=== PATIENT | female | born 1970 | race Two or more races ===

== ENCOUNTER 2024-10-13 21:27 | Inpatient (IN) | payer OTHER, MEDICAID ==
[~2024-10-13] VITALS: Ht 165.1 cm; Wt 75.0 kg
[2024-10-13] MEDS: ASPirin 81 mg TAB PO ONE (22:18)
[2024-10-13 22:21] LABS: Basophils # (auto) 0.1 10 ^3/uL (0-0.2); Basophils % (auto) 0.8 % (0.0-2.0); Eosinophils # (auto) 0.2 10 ^3/uL (0-0.8); Eosinophils % (auto) 1.7 % (0.0-7.0); Hematocrit 35.4 % (36.0-46.0); Hemoglobin 11.8 g/dL (12.2-16.2); Lymphocytes # (auto) 5.7 10 ^3/uL (0.4-5.4); Lymphocytes % (auto) 46.1 % (10.0-50.0); Mean Corpuscular Hemoglobin 31.6 pg (28.0-32.0); Mean Corpuscular Hgb Conc. 33.2 g/dL (32.0-36.0); Mean Corpuscular Volume 95.1 fL (80.0-100.0); Monocytes # (auto) 0.8 10 ^3/uL (0-1.3); Monocytes % (auto) 6.2 % (0.0-12.0); Neutrophils # (auto) 5.6 10 ^3/uL (1.6-8.6); Neutrophils % (auto) 45.2 % (37.0-80.0); Nucleated Red Blood Cells % 0.1 %; Platelet Count (auto) 312 10^3/uL (140-450); Red Blood Cells 3.72 10^6/uL (4.0-5.20); Red Cell Distribution Width 13.7 % (11.8-14.3); White Blood Cell 12.4 10^3/uL (4.4-10.8)
--- NOTE | 2024-10-13 22:23 | DVH ---
CHEST RADIOGRAPH Indication: cp Technique: Single frontal view of the chest was obtained COMPARISON: None FINDINGS: Lines and Tubes: None Lungs: Clear Pleura: No effusion. No pneumothorax. Cardiomediastinal contours: Unremarkable Bones: Unremarkable IMPRESSION: 1. No acute disease.
[2024-10-13 22:55] LABS: Alanine Aminotransferase 29 U/L (7-40); Anion Gap 9 (5-15); Aspartate Aminotransferase 37 U/L (13-40); BUN/Creatinine Ratio 14.1 (10.0-20.0); Blood Alcohol 26.5 mg/dL (<10); Blood Urea Nitrogen 14 mg/dL (9-23); Calcium 9.3 mg/dL (8.7-10.4); Carbon Dioxide 23 mmol/L (20-31); Sodium 140 mmol/L (136-145); Total Protein 6.1 g/dL (5.7-8.2)
[2024-10-13 22:58] LABS: Alkaline Phosphatase 131 U/L (46-116); Bilirubin, Total 0.2 mg/dL (0.2-1.0); Chloride 108 mmol/L (98-107); Glucose 169 mg/dL (74-106); Potassium 3.1 mmol/L (3.5-5.1)
[2024-10-13 23:14] LABS: Albumin 3.8 g/dL (3.2-4.8)
[2024-10-14] VITALS (16 sets, daily range): BP systolic 96–130; BP diastolic 51–72; PULSE 70–89; RESP 12–20; TEMP 97.6–99.4; O2SAT 96–100
--- NOTE | 2024-10-14 00:29 | ED.PDOC ---
HPI Comments 54-year-old female who presents to the emergency department with chest pain. Patient appears to be altered, she is a poor historian. EMS reports possible alcohol use. EMS states that patient's called 911 after patient started complaining of chest pain and dizziness. The patient states she has hip pain. She reports a history of heart attack however she takes no cardiac meds per EMS. Patient reports that she did drink alcohol tonight, She states "i don't know " w hen asked how much. Chief Complaint: Chest Pain Time Seen by MD: 21:36 Allergies: Coded Allergies: NO KNOWN ALLERGIES (Unverified , 10/13/24) Mode of Arrival: Ambulatory Review of Systems: Unable to obtain due to AMS. Patient answers "I don't know" to most questions. Vital Signs Vital Signs Date Time Temp Pulse Resp B/P (MAP) Pulse Ox O2 Delivery O2 Flow Rate FiO2 10/14/24 00:36 77 10/13/24 21:27 98.0 16 112/60 (77) 100 Physical Exam General: Patient is sleeping, arouses to verbal Skin: Skin in warm, dry and intact. Appropriate color for ethnicity. HEENT: The head is normocephalic and atraumatic. Conjunctivae are clear without exudates or hemorrhage. Sclera is non-icteric. EOM are intact. No signs of nystagmus. Eyelids are normal in appearance without swelling or lesions. Oral mucosa is pink and moist Neck: The neck is supple with normal range of motion. No JVD. Cardiac: Heart rate and rhythm are normal. No murmurs, gallops, or rubs are auscultated. Respiratory: No signs of respiratory distress. Lung sounds are clear in all lobes bilaterally without rales, ronchi, or wheezes. Abdominal: Abdomen is soft, non-tender without distention. Bowel sounds are present and normoactive in all four quadrants. Extremities: Upper and lower extremities are atraumatic in appearance without deformity or edema. Neurological: The patient is awake, alert and oriented to person, place, and time with normal speech. Speech is clear. There is no facial asymmetry. Psychiatric: Appropriate mood and affect. Good judgement and insight. No visual or auditory hallucinations. CP Differential Dx Differential Diagnosis: Other X-Ray, Labs, Meds, VS Vital Signs Date Time Temp Pulse Resp B/P (MAP) Pulse Ox O2 Delivery O2 Flow Rate FiO2 10/14/24 00:36 77 10/13/24 22:40 87 10/13/24 21:40 99 10/13/24 21:27 98.0 100 16 112/60 (77) 100 Lab Test 10/13/24 23:00 10/13/24 22:11 Range/Units Troponin I High Sensitivity < 3 L < 3 L </=34 ng/L White Blood Count 12.4 H 4.4-10.8 10^3/uL Red Blood Count 3.72 L 4.0-5.20 10^6/uL Hemoglobin 11.8 L 12.2-16.2 g/dL Hematocrit 35.4 L 36.0-46.0 % Mean Corpuscular Volume 95.1 80.0-100.0 fL Mean Corpuscular Hemoglobin 31.6 28.0-32.0 pg Mean Corpuscular Hemoglobin Concent 33.2 32.0-36.0 g/dL Red Cell Distribution Width 13.7 11.8-14.3 % Platelet Count 312 140-450 10^3/uL Mean Platelet Volume 7.5 6.9-10.8 fL Neutrophils (%) (Auto) 45.2 37.0-80.0 % Lymphocytes (%) (Auto) 46.1 10.0-50.0 % Monocytes (%) (Auto) 6.2 0.0-12.0 % Eosinophils (%) (Auto) 1.7 0.0-7.0 % Basophils (%) (Auto) 0.8 0.0-2.0 % Neutrophils # (Auto) 5.6 1.6-8.6 10 ^3/uL Lymphocytes # (Auto) 5.7 H 0.4-5.4 10 ^3/uL Monocytes # (Auto) 0.8 0-1.3 10 ^3/uL Eosinophils # (Auto) 0.2 0-0.8 10 ^3/uL Basophils # (Auto) 0.1 0-0.2 10 ^3/uL Nucleated Red Blood Cells 0.1 % Sodium Level 140 136-145 mmol/L Potassium Level 3.1 L 3.5-5.1 mmol/L Chloride Level 108 H 98-107 mmol/L Carbon Dioxide Level 23 20-31 mmol/L Anion Gap 9 5-15 Blood Urea Nitrogen 14 9-23 mg/dL Creatinine 0.99 0.550-1.02 mg/dL Glomerular Filtration Rate Calc 68 >90 mL/min BUN/Creatinine Ratio 14.1 10.0-20.0 Serum Glucose 169 H 74-106 mg/dL Calcium Level 9.3 8.7-10.4 mg/dL Total Bilirubin 0.2 0.2-1.0 mg/dL Aspartate Amino Transferase (AST) 37 13-40 U/L Alanine Aminotransferase (ALT) 29 7-40 U/L Alkaline Phosphatase 131 H 46-116 U/L B-Type Natriuretic Peptide 102.08 0-100 pg/mL Total Protein 6.1 5.7-8.2 g/dL Albumin 3.8 3.2-4.8 g/dL Plasma/Serum Blood Alcohol 26.5 H <10 mg/dL Current Medications Medications (Trade) Dose Ordered Sig/Radha Route Start Time Stop Time Status Last Admin Aspirin 324 mg ONCE ONCE PO 10/13/24 22:00 10/13/24 22:01 DC 10/13/24 22:18 Time of 1ST Reevaluation: 00:28 Reevaluation 1ST: Unchanged Time of 2ND Reevaluation: 01:12 Reevaluation 2ND: Unchanged (Patient is stating she is confused, does not know where she is, does not remember how she got to the emergency department. Patient's boyfriend at bedside STEMI patient is not back to baseline.) Reevaluation 3RD: Unchanged (Patient is still confused, stating she doesn't know where she is. Doesn't remember coming to the hospital.) Patient Education/Counseling: Other (Need for admission) Family Education/Counseling: Other (Need for admission) Departure Time of Disposition: 00:28 Disposition: 09 ADMITTED INPATIENT Condition: Stable Comments 54 year old female with chest pain and AMS. Patient is still confused after significant time in ED. no focal neuro deficit. Blood alcohol level only 25. Patient admitted for further treatment, evaluation and monitoring. STUART LABOY MD Oct 14, 2024 00:29
--- NOTE | 2024-10-14 00:47 | DVH ---
Procedure: CT CHEST WITHOUT CONTRAST Reason for study/Clinical History: cp, abnormal cxr Comparison Study: None available at time of dictation. Exam Date: 10/14/2024 12:21 AM TECHNIQUE: Multidetector CT of the chest was performed from the lung apices to the upper abdomen with out the use of intravenous contract. Axial, coronal and sagittal multiplanar reformats were performed . Radiation Dose Information: CT Dose: CTDI volume is 9.0 mGy. Dose-length product is 335 mGy*cm The dose indicators for CT are the volume Computed Tomography (CT) Dose Index (CTDIvol) and the Dose Length Product (DLP), and are measured in units of mGy and mGy-cm, respectively. These indicators are not patient dose, but values generated from the CT scanner acquisition factors. The report includes radiation exposure data for exposures received during this examination. FINDINGS: Lower neck: Normal thyroid. Lungs: Bibasilar atelectasis/scarring. No focal consolidation, pleural effusion or pneumothorax. Heart/Vascular Structures: Normal heart size. No pericardial effusion. Lymph Nodes: No adenopathy Pleura: No pleural effusion or significant pneumothorax. Musculoskeletal: No acute osseous abnormality. Soft tissues: Normal. Upper abdomen: Limited portions of the upper abdomen are unremarkable. IMPRESSION: 1. No acute intrathoracic abnormality. Radiation optimization: All CT scans at this facility use at least one of these dose optimization brisa hniques: automated exposure control mA and/or kV adjustment per patient size (includes targeted exam s where dose is matched to clinical indication) or iterative reconstruction.
--- NOTE | 2024-10-14 01:57 | DVH ---
CLINICAL HISTORY: ams TECHNIQUE: Helical imaging carried out from skull base to vertex without intravenous contrast. This e xam was performed according to our departmental dose optimization program. Up-to-date CT equipment an d radiation dose reduction techniques are utilized as appropriate. CTDIVol: 57.57 mGy DLP: 1134 mGy-cm WID: COMPARISON: CT CHEST WITHOUT CONTRAST on DOS: 10/14/24 FINDINGS: The ventricles and subarachnoid spaces are normal in size and configuration. There is no midline elmo ft or mass effect. The quiros white matter interfaces are maintained. The basal cisterns are patent. Th ere is no evidence of acute intracranial hemorrhage or extra-axial fluid collection. The mastoid air cells and visualized paranasal sinuses are well-aerated. Dystrophic calcification anterior to the eleuterio ateral maxilla. IMPRESSION: No acute intracranial abnormality.
[2024-10-14] MEDS: POTASSIUM EFFERVESENT TAB 25 MEQ PO ONE (03:00)
[2024-10-14] MEDS: SODIUM CHLORIDE 0.9% 1,000 ML IV ONE (03:40)
[2024-10-14] MEDS ORDERED: ONDANSETRON HCL 4 MG/2 ML VIAL IV PRN (04:00)
[2024-10-14] MEDS ORDERED: NITROGLYCERIN 0.4 MG SL TAB SL PRN (04:00)
[2024-10-14] MEDS ORDERED: MORPHINE SULFATE INJ 2 MG/ml SYRG IV PRN (04:00)
[2024-10-14] MEDS ORDERED: ACETAMINOPHEN 325 MG TAB PO PRN (04:00)
--- NOTE | 2024-10-14 04:11 | DVHHPRES ---
History of Present Illness Resident Creating Document: LEWIS ANGULO RESDIENT History of Present Illness This is a 54-year-old female with past medical history of CABG, lipidemia came to the hospital because of chest pain. Per patient, the patient drank alcohol and later on the patient developed chest pain, which was localized at central chest, with no radiation, and pressure-like in nature. She also complained of palpitation, nausea, confusion and dizziness. Patient is confused and could not provide proper history. During my assessment, the patient denied fever, shortness of breath, cough, headache, visual deficits, any motor or sensory deficits. PMHx: Coronary artery disease, hyperlipidemia PSHx: CABG, hysterectomy, gallbladder removal and gastric sleeve Family history: Noncontributory Social history: Patient lives with son at home, current smoker, drank alcohol, denies any other drug use Home medication: Plavix, atorvastatin, gabapentin, Percocet, Allergic history: No known allergies Review of Systems Review of Systems General: patient denies fever, fatigue, weaknes, sweating, any recent changes in appetite and weight HEENT: No headaches, visiual changes, hearing loss, tinnitus, nasal congestion and discharge, and sore throat. Cardiovascular: Reports chest pain, and palpitation Respiratory: No cough, and wheezing. Gastrointestinal: Reports nausea Genitourinary: No dysuria, hematuria, discharge, frequency, urgency, nocturia, incontinence, and urinary retention. Endocrine: No heat or cold intolerance, polydipsia, polyuria, and polyphagia. Neurological: Reports dizziness Psychiatric: Denies depression, anxiety,or insomnia. Musculoskeletal: Denies neck pain, stiffness and swelling, back pain, muscle weakness, joint pain, stiffness, swelling, or limited range of motion. Skin: No rashes, itching, skin lesion, changes in hair, nail, skin texture and breast. Hematologic/Lymphatic: Denies easy bruising, bleeding tendencies, or lymph node enlargement. Allergies: Coded Allergies: NO KNOWN ALLERGIES (Unverified , 10/13/24) Exam Vital Signs Vital Signs Date Time Temp Pulse Resp B/P (MAP) Pulse Ox O2 Delivery O2 Flow Rate FiO2 10/14/24 02:48 89 16 106/67 (80) 100 10/13/24 21:27 98.0 Exam General Appearance: Alert, Oriented X3, lethargic and did not cooperate properly during physical exam HEENT: Atraumatic, PERRLA, EOMI, Mucous membrane moist/pink Respiratory: Clear to auscultation, Normal air movement Cardiovascular: Regular rate, Normal S1, Normal S2, No murmurs, no chest wall tenderness Abdominal: Normal bowel sounds, Soft, No tenderness, No hepatospenomegaly, No masses Extremities: No clubbing, No cyanosis, No edema, Normal pulses, No tenderness/swelling Skin: No rashes, No breakdown, No significant lesion Neuro: Normal gait, Normal speech, Strength at 5/5 X4 ext, Normal tone, Sensation intact, Cranial nerves 3-12 NL, Reflexes 2+ Psych/Mental Status: Mental status NL, Mood NL Labs/Xrays Labs Test 10/13/24 23:00 10/13/24 22:11 Range/Units Troponin I High Sensitivity < 3 L </=34 ng/L White Blood Count 12.4 H 4.4-10.8 10^3/uL Red Blood Count 3.72 L 4.0-5.20 10^6/uL Hemoglobin 11.8 L 12.2-16.2 g/dL Hematocrit 35.4 L 36.0-46.0 % Mean Corpuscular Volume 95.1 80.0-100.0 fL Mean Corpuscular Hemoglobin 31.6 28.0-32.0 pg Mean Corpuscular Hemoglobin Concent 33.2 32.0-36.0 g/dL Red Cell Distribution Width 13.7 11.8-14.3 % Platelet Count 312 140-450 10^3/uL Mean Platelet Volume 7.5 6.9-10.8 fL Neutrophils (%) (Auto) 45.2 37.0-80.0 % Lymphocytes (%) (Auto) 46.1 10.0-50.0 % Monocytes (%) (Auto) 6.2 0.0-12.0 % Eosinophils (%) (Auto) 1.7 0.0-7.0 % Basophils (%) (Auto) 0.8 0.0-2.0 % Neutrophils # (Auto) 5.6 1.6-8.6 10 ^3/uL Lymphocytes # (Auto) 5.7 H 0.4-5.4 10 ^3/uL Monocytes # (Auto) 0.8 0-1.3 10 ^3/uL Eosinophils # (Auto) 0.2 0-0.8 10 ^3/uL Basophils # (Auto) 0.1 0-0.2 10 ^3/uL Nucleated Red Blood Cells 0.1 % Sodium Level 140 136-145 mmol/L Potassium Level 3.1 L 3.5-5.1 mmol/L Chloride Level 108 H 98-107 mmol/L Carbon Dioxide Level 23 20-31 mmol/L Anion Gap 9 5-15 Blood Urea Nitrogen 14 9-23 mg/dL Creatinine 0.99 0.550-1.02 mg/dL Glomerular Filtration Rate Calc 68 >90 mL/min BUN/Creatinine Ratio 14.1 10.0-20.0 Serum Glucose 169 H 74-106 mg/dL Calcium Level 9.3 8.7-10.4 mg/dL Total Bilirubin 0.2 0.2-1.0 mg/dL Aspartate Amino Transferase (AST) 37 13-40 U/L Alanine Aminotransferase (ALT) 29 7-40 U/L Alkaline Phosphatase 131 H 46-116 U/L B-Type Natriuretic Peptide 102.08 0-100 pg/mL Total Protein 6.1 5.7-8.2 g/dL Albumin 3.8 3.2-4.8 g/dL Plasma/Serum Blood Alcohol 26.5 H <10 mg/dL Assessment/Plan Assessment/Plan Acute toxic Encephalopathy likely due to alcohol intoxication serum alcohol level is raised at Head CT scan is normal Serum alcohol level is raised at 26.5 [facility] protocol Ativan p.r.n. Librium p.r.n. Thiamine Zofran p.r.n. Protonix Chest pain, to rule out ACS History of coronary artery disease, status post CABG Hyperlipidemia EKG shows normal sinus rhythm, with no acute ST or T-wave changes Serial trop I is within normal limits Continue Plavix Continue atorvastatin Current smoker Patient counseled for smoking cessation for more than 17 minutes Hypokalemia, repleted Hyperchloremia, monitoring Mild anemia, normocytic normochromic Monitoring DIET: Cardiac diet DVT PROPHYLAXIS: SCDs GI PROPHYLAXIS:: Protonix CODE STATUS: Goal of care discussed for more than 21 minutes, full code DISPOSITION: Telemetry Patient's status discussed with the patient. Case discussed with Dr. Gomes Plan discussed with: Patient, Other (RN) My Orders Orders - LEWIS ANGULO RESDIENT Procedure Category Date Status Time Admit ADMIT 10/14/24 Transmitted 03:50 Nitroglycerin PHA 10/14/24 In Process Sublingual (Ntrostat 04:00 Morphine Sulfate PHA 10/14/24 In Process Injection 04:00 Stat Ekg For Chest KAMLA 10/14/24 In Process Pain 03:50 Notify Of Changes KAMLA 10/14/24 In Process From Base 03:50 Overhead Worker For KAMLA 10/14/24 In Process 24 Hours 03:50 Emergency Dysrhythmia KAMLA 10/14/24 In Process Protocol 03:50 Rhythm Strips Once KAMLA 10/14/24 In Process Every Shift 03:50 Pantoprazole PHA 10/14/24 In Process (Protonix) 04:00 Pantoprazole PHA 10/14/24 In Process (Protonix) 10:00 Sodium Chloride 0.9% PHA 10/14/24 In Process 04:00 Hydrocodone-Acet PHA 10/14/24 In Process 5/325mg Tab ([place] 04:00 Ondansetron Hcl PHA 10/14/24 In Process (Zofran) 04:00 Ondansetron Hcl PHA 10/14/24 In Process (Zofran) 04:00 Clopidogrel Bisulfate PHA 10/14/24 In Process (Plavix) 04:00 Clopidogrel Bisulfate PHA 10/14/24 In Process (Plavix) 10:00 Atorvastatin (Lipitor) PHA 10/14/24 In Process 22:00 Atorvastatin (Lipitor) PHA 10/14/24 In Process 04:00 Thiamine Inj PHA 10/14/24 In Process 04:00 Thiamine Tab PHA 10/14/24 In Process 10:00 Acetaminophen Tablet PHA 10/14/24 In Process (Tylenol Tablet) 04:00 Sequential KAMLA 10/14/24 In Process Compression Device 03:54 Cardiac DIET 10/14/24 Transmitted Diet-2gna,Lofat,Lochol Breakfast Echo 2d Mode Cardiac US 10/14/24 Logged DOP 03:54 Lipid Panel LAB 10/14/24 Logged 03:54 Thyroid Stimulating LAB 10/14/24 Logged Hormone 03:54 Magnesium LAB 10/14/24 Logged 03:54 Urinalysis LAB 10/14/24 Logged 03:54 Drug Screen LAB 10/14/24 Logged 03:54 Folate (Folic Acid) LAB 10/14/24 Logged 03:54 Vitamin D, 25-Hydroxy LAB 10/14/24 Logged 03:54 Vitamin B12 LAB 10/14/24 Logged 03:54 Complete Blood Count LAB 10/14/24 Logged 04:00 Comprehensive LAB 10/14/24 Logged Metabolic Panel 04:00 Troponin-I Hs LAB 10/14/24 Logged 07:56 Date of Service: Oct 14, 2024 Billing Provider: EVER GOMES MD Common Visit Codes: [id number] INP/OBS CARE (HIGH) LEWIS ANGULO RESPATSY Oct 14, 2024 04:11 EVER GOMES MD Oct 14, 2024 08:59
[2024-10-14] MEDS: POTASSIUM EFFERVESENT TAB 25 MEQ GT ONE (04:20)
--- NOTE | 2024-10-14 06:58 | ECG ---
[facility] Test Date: 2024-10-13 Test Time: 21:40:04 Pat Name: PIPER ARCHER Department: ed Room: 0240T Gender: F Well Tester: jose : 1970 Requested By: STUART LABOY Order Number: [id number] Reading MD: Phil No Measurements Intervals [place] Rate: 99 P: 57 NH: 143 QRS: 65 QRSD: 95 T: 60 QT: 398 QTc: 511 Interpretive Statements Sinus rhythm Minimal ST depression, lateral leads Prolonged QT interval Electronically Signed On 10-16-2024 15:54:42 PST by Phil No Please click the below link to view image of tracing.
[2024-10-14] MEDS: SODIUM CHLORIDE 0.9% 1,000 ML IV SCH (08:00)
[2024-10-14 08:03] LABS: Basophils # (auto) 0.1 10 ^3/uL (0-0.2); Basophils % (auto) 0.6 % (0.0-2.0); Eosinophils # (auto) 0 10 ^3/uL (0-0.8); Eosinophils % (auto) 0.4 % (0.0-7.0); Hematocrit 36.9 % (36.0-46.0); Hemoglobin 12.7 g/dL (12.2-16.2); Lymphocytes # (auto) 2.2 10 ^3/uL (0.4-5.4); Lymphocytes % (auto) 24.5 % (10.0-50.0); Mean Corpuscular Hemoglobin 32.7 pg (28.0-32.0); Mean Corpuscular Hgb Conc. 34.2 g/dL (32.0-36.0); Mean Corpuscular Volume 95.5 fL (80.0-100.0); Monocytes # (auto) 0.5 10 ^3/uL (0-1.3); Monocytes % (auto) 5.6 % (0.0-12.0); Neutrophils # (auto) 6.2 10 ^3/uL (1.6-8.6); Neutrophils % (auto) 68.9 % (37.0-80.0); Platelet Count (auto) 309 10^3/uL (140-450); Red Blood Cells 3.87 10^6/uL (4.0-5.20); Red Cell Distribution Width 14.1 % (11.8-14.3)
[2024-10-14 08:19] LABS: Urine Bacteria FEW /hpf (None Seen); Urine Blood TRACE /uL (Negative); Urine Clarity Clear (Clear); Urine Color Yellow (Yellow); Urine Hyaline Cast FEW /lpf (0 - 2); Urine Protein, UAD TRACE (Negative); Urine Specific Gravity 1.021 (1.001-1.035); Urine Squamous Epithelial Cell FEW /hpf (<5); Urine Urobilinogen Normal (Negative); Urine WBC 5 /hpf (0 - 5); Urine pH 6.5 (5.0-9.0)
[2024-10-14 08:22] LABS: Alanine Aminotransferase 32 U/L (7-40); Albumin 4.6 g/dL (3.2-4.8); Anion Gap 7 (5-15); Aspartate Aminotransferase 34 U/L (13-40); BUN/Creatinine Ratio 16.3 (10.0-20.0); Bilirubin, Total 0.4 mg/dL (0.2-1.0); Blood Urea Nitrogen 13 mg/dL (9-23); Calcium 10.1 mg/dL (8.7-10.4); Carbon Dioxide 26 mmol/L (20-31); Chloride 107 mmol/L (98-107); Cholesterol 117 mg/dL (< 200); Glucose 85 mg/dL (74-106); HDL Cholesterol 53 mg/dL (40-59); LDL Cholesterol 46 mg/dL (< 100); Magnesium 2.2 mg/dL (1.6-2.6); Potassium 4.2 mmol/L (3.5-5.1); Sodium 140 mmol/L (136-145); Triglycerides 125 mg/dL (< 150)
[2024-10-14 08:29] LABS: Alkaline Phosphatase 136 U/L (46-116)
[2024-10-14 08:44] LABS: Amphetamine Screen, Urine Neg (NEGATIVE); Barbiturate Scree,Urine Neg (NEGATIVE); Benzodiazephine Screen, Urine Neg (NEGATIVE); Cannabinoid Screen, Urine Pos (NEGATIVE); Cocaine Screen, Urine Neg (NEGATIVE); Opiate Scree,Urine Neg (NEGATIVE); Phencyclidine Screen, Urine Neg (NEGATIVE)
[2024-10-14] MEDS: PANTOPRAZOLE 40 MG/10 ML VIAL INJ IV ONE (08:56)
[2024-10-14] MEDS: THIAMINE 100mg/ml INJ (200mg/2ml VIAL) IV ONE (08:56)
[2024-10-14] MEDS: ONDANSETRON HCL 4 MG/2 ML VIAL IV ONE (08:57)
[2024-10-14] MEDS: CLOPIDOGREL BISULFATE 75 MG TAB PO ONE (08:57)
[2024-10-14] MEDS: ATORVASTATIN 20 MG TAB PO ONE (08:57)
[2024-10-14 09:10] LABS: Folate (Folic Acid) 38.52 ng/mL (>5.38)
[2024-10-14 10:14] LABS: COVID19 ANTIGEN SOFIA FIA NEGATIVE (NEGATIVE); Rapid Influenza A Negative (Negative); Rapid Influenza B Negative (Negative)
[2024-10-14] MEDS: POTASSIUM CHLORIDE 40 MEQ, LIDOCAINE 1% (LOCAL ANESTH.) 4 ML in SODIUM CHL 0.9% 250 ML IV ONE (10:52)
[2024-10-14] MEDS: CLOPIDOGREL BISULFATE 75 MG TAB PO SCH (10:53)
[2024-10-14] MEDS: THIAMINE HCL 100 MG TAB PO SCH (10:53)
[2024-10-14] MEDS: PANTOPRAZOLE 40 MG/10 ML VIAL INJ IV SCH (10:54)
[2024-10-14] MEDS: D5W/SOD CHL 0.45% 1,000 ML IV SCH (13:50)
--- NOTE | 2024-10-14 15:21 | ECG ---
[facility] Test Date: 2024-10-14 Test Time: 00:36:20 Pat Name: PIPER ARCHER Department: ed Room: 0240T Gender: F Research Administrator: jose : 1970 Requested By: STUART LABOY Order Number: [id number] Reading MD: Phil No Measurements Intervals [place] Rate: 77 P: 55 NH: 138 QRS: 63 QRSD: 107 T: 72 QT: 416 QTc: 471 Interpretive Statements Sinus rhythm Electronically Signed On 10-16-2024 15:56:26 PST by Phil No Please click the below link to view image of tracing.
--- NOTE | 2024-10-14 15:48 | DVHPNRES ---
Progress Note Date Seen: Oct 14, 2024 Resident Creating Document: NE [place] RESIDENT Has the PT tested + for MRSA If YES, has PT been informed?: No Medical Necessity Reason Pt with a Central, PICC or Fol: No Subjective Review of Systems This is a 54-year-old female with past medical history of CABG in (Apr), hyperlipidemia, who came to the hospital because of Acute chest pain. Patient reported pain drinking alcohol before coming to the ED when she developed substernal chest pain localized in the center of the chest with minimal radiation to the right side of the chest. The patient described the pain as a pressure type of pain associated with palpitations. She also reported nausea confusion and dizziness. Upon admission the patient denies shortness of breath, abdominal pain, fever/chills or any other symptoms. Initial chest x-ray was grossly unremarkable without evidence of consolidations, CT of the chest was unremarkable as well and CT scan of the head showed no evidence of ischemia or hemorrhage. Echocardiogram was ordered and patient was admitted to completely rule out ACS or any other cardiac etiology. Patient seen and examined at bedside. The patient is still complaining of chest pain located in the right side of the chest that is intermittent in nature and is associated with palpitations. EKG showed sinus rhythm with no ST segment elevation or depression. Troponins came back negative and BNP was 102. We are still pending for echocardiogram. On further questioning the patient admitted to suffer from anxiety and panic attacks which could also explain her symptoms of chest pain/palpitations. We will wait for echocardiogram to assess LVEF, once come back if unremarkable we will plan on discharge the patient. The patient is also currently coursing with alcohol intoxication, CIWA score 8 points. ROS Constitutional: Reports mild anxiety/agitation. Denies weight loss, fever and chills. HEENT: Denies changes in vision and hearing. Respiratory: Denies shortness of breath and cough Cardiovascular: Reports right-sided chest discomfort with associated palpitations. GI: Denies abdominal pain, nausea, vomiting and diarrhea. : Denies dysuria and urinary frequency. Musculoskeletal: Denies myalgias and joint pain Skin: Denies rash and pruritus. Neurological: Reports headache. Denies dizziness, vision or hearing problems Objective vital signs Vital Sign Date Time Temp Pulse Resp B/P (MAP) Pulse Ox O2 Delivery O2 Flow Rate FiO2 10/14/24 12:10 99.0 82 12 103/70 (81) 98 99.0 10/14/24 08:29 Room Air* 0 21 medications Current Medications Medications Dose Ordered Sig/Radha Route Start Time Stop Time Status Last Admin Dose Admin Nitroglycerin 0.4 mg Q5MINP PRN SL 10/14/24 04:00 Morphine Sulfate 2 mg Q30M PRN IV 10/14/24 04:00 Pantoprazole Sodium 40 mg DAILY IV 10/14/24 10:00 10/14/24 10:54 40 MG Acetaminophen/ Hydrocodone Bitart 1 tab Q4HPRN PRN PO 10/14/24 04:00 Ondansetron HCl 4 mg Q4HPRN PRN IV 10/14/24 04:00 Clopidogrel Bisulfate 75 mg DAILY PO 10/14/24 10:00 10/14/24 10:53 75 MG Atorvastatin Calcium 40 mg HS PO 10/14/24 22:00 Thiamine HCl 100 mg DAILY PO 10/14/24 10:00 10/14/24 10:53 100 MG Acetaminophen 650 mg Q4HP PRN PO 10/14/24 04:00 Lorazepam 1 mg Q2HPRN PRN IV 10/14/24 04:00 Chlordiazepoxide HCl 25 mg Q6HPRN PRN PO 10/14/24 04:00 Dextrose/Sodium Chloride 1,000 ml @ 100 mls/hr Q10H IV 10/14/24 12:45 10/14/24 13:50 100 MLS/HR Examination Physical Examination General: Patient alert and oriented in person, place and time. Patient is mildly anxious. Patient following commands. HEENT: Normocephalic, atraumatic, moist mucous membranes Respiratory/pulmonary: Clear lungs bilaterally, no associated crackles or wheezes. Cardiovascular: Normal heart sounds S1 and S2 with no associated murmurs. Abdomen: Abdomen nondistended, there is no pain to palpation in any of the abdominal quadrants, no palpable masses. Extremities: There is no peripheral edema present at the lower extremities. Peripheral Pulses: 3+ Radial (R). 3+ Radial (L). 3+ Dorsalis pedis (R). 3+ Dorsalis pedis(L) Skin: No rashes or pruritus, there is no sacral edema present at this time. Neurological: Intact cranial nerves with no focal neurologic deficits laboratory and microbiology Laboratory Tests 10/14/24 07:30 Test 10/14/24 07:30 Range/Units Serum Glucose 85 74-106 mg/dL Problem List/Assessment/Plan Problem List/Assessment/Plan Assessment/Plan Acute chest pain, R/O ACS Chest pain, Possible panic attack/Anxiety related? -initial EKG sinus rhythm with no ST segment elevation or depression. -troponins came back within normal limits -continue on Plavix 75 mg daily -start aspirin 81 mg daily -continue atorvastatin 40 mg daily -Waiting for Echocardiogram Acute toxic encephalopathy likely due to alcohol intoxication -serum alcohol level was 26.5 -CIWA score 8 points (only mild agitation/ mild anxiety/headache/nausea) -Ativan 1 mg p.r.n. -chlordiazepoxide 25 mg p.r.n. q.6 -thiamine 100 mg daily -Zofran p.r.n. History of coronary artery disease, status post CABG on April 2023 -EKG and troponins were unremarkable -start aspirin 81 mg daily -continue Plavix 75 mg daily -continue atorvastatin 40 mg daily Current smoker -treatment counselor on smoking cessation for 8 minutes Hypokalemia, resolved -K now 4.2 Normocytic normochromic anemia -hemoglobin is 11.8 -monitor hemoglobin and hematocrit Goals of care discussed with the patient at bedside, full code Plan discussed with Dr. Russell Plan discussed with: Patient My Orders My Orders Orders - NE HUD[place]LE[place]ON Procedure Category Date Status Time Mrsa Screen MAY 10/14/24 In Process 10:15 Education - Smoking KAMLA 10/14/24 In Process Cessation 10:03 * Smoking Cessation CONS 10/14/24 Transmitted Consult 10:03 * Mixer And Scaler CONS 10/14/24 Transmitted Consult 10:03 D5w/Sod Chl 0.45% PHA 10/14/24 In Process (D5w 1/2ns) 12:45 Free T4 (Free LAB 10/14/24 In Process Thyroxine) 13:50 Ammonia LAB 10/14/24 In Process 13:51 Date of Service: Oct 14, 2024 Billing Provider: ARTURO WAGONER MD Common Visit Codes: [id number] INP/OBS CARE(HIGH) NE H[place] RESIDENT Oct 14, 2024 15:48 ARTURO WAGONER MD Oct 17, 2024 16:34
--- NOTE | 2024-10-14 16:14 | DVHSR ---
APPROVED REPORT EXAM: Two-dimensional and M-mode echocardiogram with Doppler and color Doppler. Blood Pressure: 116/74 mmHg INDICATION Chest Pain RISK FACTORS Height: 65, Weight: 165 DIMENSIONS LVDd4.5 (3.8-5.7cm)LA (2D)4.1 (1.9-4.0cm)Aortic Root3.1 (2.0-3.7cm) LVDs2.8 (2.5-4.0cm)LA (MM) (1.9-4.0cm)Aortic Cusp Exc1.8 (1.5-2.0cm) EF (%) 67.0 (55-70%)Rt. Atrium3.7 (1.9-4.0cm)Asc. Aorta cm IVSd1.1 (0.7-1.1cm)RV (D) (1.8-2.4cm) PWd0.9 (0.7-1.1cm) Mitral Valve MitralMitral Stenosis E wave0.62m/sMV Mean GR.mmHg A wave0.62m/sMV Peak GR.mmHg E/A ratio1.02D MVAcm2 DECEL [id number] 1/2 [id number] IVRTmsDop MVA3.53cm2 Aortic Valve Aortic ValveAortic Stenosis V11.08m/Odalys Mean GR.6mmHg V21.76m/Odalys Peak GR.12mmHg LVOT Diameter1.9 (1.8-2.4cm)Doppler AVA1.74cm2 Pulmonic Valve V21.01m/s Tricuspid Valve TR Velocity2.17m/s [id number] Conclusion lvef 60% normal lv function grade 1 diastolic dysfunction normal rv function left atrium enlarged mild no severe valve abnormalities noted trivial pericardial effusion noted
[2024-10-14] MEDS: ATORVASTATIN 20 MG TAB PO SCH (21:02)
[2024-10-14] MEDS: chlordiazePOXIDE HCL 25 MG CAP PO PRN (21:02)
[2024-10-14] MEDS: HYDROcodone-ACET 5/325MG TAB PO PRN (21:10)
[2024-10-14] MEDS: MELATONIN 5 MG TAB PO ONE (22:00)
[2024-10-14] MEDS: LORazepam 2MG/ML-1ML VIAL IV PRN (23:15)
[2024-10-14] MEDS ORDERED: ATOR40TA52 PO (23:59)
[2024-10-14] MEDS ORDERED: PRED20TA2 PO (23:59)
[2024-10-14] MEDS ORDERED: LANS15CA25 (23:59)
[2024-10-14] MEDS ORDERED: CYCL-611 PO (23:59)
[2024-10-14] MEDS ORDERED: PERCOT (23:59)
[2024-10-14] MEDS ORDERED: GABA-339 PO (23:59)
[2024-10-14] MEDS ORDERED: CLOP75TA70 (23:59)
[2024-10-14] MEDS ORDERED: MET25T PO (23:59)
[2024-10-15] VITALS (7 sets, daily range): BP systolic 106–139; BP diastolic 54–80; PULSE 73–89; RESP 18–20; TEMP 97.5–98.4; O2SAT 94–98
[2024-10-15 05:29] LABS: Anion Gap 6 (5-15); Carbon Dioxide 25 mmol/L (20-31); Sodium 144 mmol/L (136-145)
[2024-10-15 05:30] LABS: Calcium 9.5 mg/dL (8.7-10.4)
[2024-10-15 05:34] LABS: Glucose 97 mg/dL (74-106)
[2024-10-15 05:35] LABS: BUN/Creatinine Ratio 21.3 (10.0-20.0); Blood Urea Nitrogen 17 mg/dL (9-23)
[2024-10-15 05:37] LABS: Chloride 113 mmol/L (98-107)
[2024-10-15] MEDS: ASPirin 81 mg TAB PO SCH (09:41)
[2024-10-15] MEDS: cefTRIAXone 1GM/50ML D5W 50 ML IV SCH (09:41)
[2024-10-15] MEDS ORDERED: NITR-52 PO (12:51)
--- NOTE | 2024-10-15 13:02 | DVHDSRES ---
Discharge Summary Date of Admission Resident Creating Document: NE H[place] RESIDENT Oct 14, 2024 at 03:50 Date of Discharge: Oct 15, 2024 Admitting Diagnosis Acute chest pain. Toxic encephalopathy Wounds: No wounds present at this time. Labs/Diagnostic Data: Laboratory Results Test 10/15/24 04:15 10/14/24 14:39 10/14/24 08:50 10/14/24 07:30 Sodium Level 144 mmol/L (136-145) Potassium Level 4.0 mmol/L (3.5-5.1) Chloride Level 113 mmol/L (98-107) Carbon Dioxide Level 25 mmol/L (20-31) Anion Gap 6 (5-15) Blood Urea Nitrogen 17 mg/dL (9-23) Creatinine 0.80 mg/dL (0.550-1.02) Glomerular Filtration Rate Calc 88 mL/min (>90) BUN/Creatinine Ratio 21.3 (10.0-20.0) Serum Glucose 97 mg/dL (74-106) Calcium Level 9.5 mg/dL (8.7-10.4) Ammonia 30 umol/L (11-32) Free Thyroxine (T4) Calculated 1.02 ng/dL (0.89-1.76) Influenza Type A Antigen Negative (Negative) Influenza Type B Antigen Negative (Negative) SARS-CoV-2 Antigen (Rapid) Negative (NEGATIVE) White Blood Count 9.0 10^3/uL (4.4-10.8) Red Blood Count 3.87 10^6/uL (4.0-5.20) Hemoglobin 12.7 g/dL (12.2-16.2) Hematocrit 36.9 % (36.0-46.0) Mean Corpuscular Volume 95.5 fL (80.0-100.0) Mean Corpuscular Hemoglobin 32.7 pg (28.0-32.0) Mean Corpuscular Hemoglobin Concent 34.2 g/dL (32.0-36.0) Red Cell Distribution Width 14.1 % (11.8-14.3) Platelet Count 309 10^3/uL (140-450) Mean Platelet Volume 7.8 fL (6.9-10.8) Neutrophils (%) (Auto) 68.9 % (37.0-80.0) Lymphocytes (%) (Auto) 24.5 % (10.0-50.0) Monocytes (%) (Auto) 5.6 % (0.0-12.0) Eosinophils (%) (Auto) 0.4 % (0.0-7.0) Basophils (%) (Auto) 0.6 % (0.0-2.0) Neutrophils # (Auto) 6.2 10 ^3/uL (1.6-8.6) Lymphocytes # (Auto) 2.2 10 ^3/uL (0.4-5.4) Monocytes # (Auto) 0.5 10 ^3/uL (0-1.3) Eosinophils # (Auto) 0 10 ^3/uL (0-0.8) Basophils # (Auto) 0.1 10 ^3/uL (0-0.2) Nucleated Red Blood Cells 0.0 % Magnesium Level 2.2 mg/dL (1.6-2.6) Total Bilirubin 0.4 mg/dL (0.2-1.0) Aspartate Amino Transferase (AST) 34 U/L (13-40) Alanine Aminotransferase (ALT) 32 U/L (7-40) Alkaline Phosphatase 136 U/L (46-116) Troponin I High Sensitivity < 3 ng/L (</=34) Total Protein 7.0 g/dL (5.7-8.2) Albumin 4.6 g/dL (3.2-4.8) Triglycerides Level 125 mg/dL (< 150) Cholesterol Level 117 mg/dL (< 200) LDL Cholesterol 46 mg/dL (< 100) HDL Cholesterol 53 mg/dL (40-59) Vitamin B12 Level 2414 pg/mL (211-911) Vitamin D 25-Hydroxy 34.9 ng/mL (30.0-100) Folic Acid 38.52 ng/mL (>5.38) Thyroid Stimulating Hormone (TSH) 0.33 uIU/mL (0.55-4.78) Test 10/14/24 03:20 10/13/24 22:11 Urine Color Yellow (Yellow) Urine Clarity Clear (Clear) Urine pH 6.5 (5.0-9.0) Urine Specific [place] 1.021 (1.001-1.035) Urine Protein Trace (Negative) Urine Ketones Trace (Negative) Urine Blood Trace /uL (Negative) Urine Nitrite Negative (Negative) Urine Bilirubin Negative (Negative) Urine Urobilinogen Normal mg/dL (Negative) Urine Leukocyte Esterase 2+ /uL (Negative) Urine RBC 15 /hpf (0 - 4) Urine WBC 5 /hpf (0 - 5) Urine Squamous Epithelial Cells Few /hpf (<5) Urine Bacteria Few /hpf (None Seen) Urine Hyaline Casts Few /lpf (0 - 2) Urine Glucose Normal mg/dL (Normal) Urine Test Negative (Negative) Urine Opiates Screen Neg (NEGATIVE) Urine Fentanyl Screen Neg (NEGATIVE) Urine Barbiturates Screen Neg (NEGATIVE) Urine Phencyclidine Screen Neg (NEGATIVE) Urine Amphetamines Screen Neg (NEGATIVE) Urine Benzodiazepines Screen Neg (NEGATIVE) Urine Cocaine Screen Neg (NEGATIVE) Urine Cannabinoids Screen Pos (NEGATIVE) B-Type Natriuretic Peptide 102.08 pg/mL (0-100) Plasma/Serum Blood Alcohol 26.5 mg/dL (<10) Other Laboratory Tests 10/15/24 04:15 10/14/24 07:30 Brief Hx & Hospital Course: Hospitalization course: This is a 54-year-old female with past medical history of CABG in (Apr), hyperlipidemia, who came to the hospital because of Acute chest pain. Patient reported pain drinking alcohol before coming to the ED when she developed substernal chest pain localized in the center of the chest with minimal radiation to the right side of the chest. The patient described the pain as a pressure type of pain associated with palpitations. She also reported nausea confusion and dizziness. Upon admission the patient denies shortness of breath, abdominal pain, fever/chills or any other symptoms. Initial chest x-ray was grossly unremarkable without evidence of consolidations, CT of the chest was unremarkable as well and CT scan of the head showed no evidence of ischemia or hemorrhage. Echocardiogram was ordered and patient was admitted to completely rule out ACS or any other cardiac etiology. Echocardiogram came back showing an LVEF of 60% with no valvular abnormalities. Patient was started on IV ceftriaxone for UTI. Patient needs to keep compliant with aspirin 81 mg daily, atorvastatin 40 mg daily, clopidogrel 75 mg daily to decrease risk of future TN and stroke. Patient was seen and evaluated at bedside. The patient denies at this time chest pain, shortness of breath, palpitations or any other symptoms. We encouraged the patient to follow up closely with her PCP and we encouraged her to get referral to psychiatrist for possible anxiety and panic attack management. Patient will be discharged with nitrofurantoin 100 mg b.i.d. for five days for treatment of uncomplicated cystitis. Patient agrees and understands the plan. Admitting diagnosis: Acute toxic encephalopathy likely due to alcohol intoxication. Acute chest pain. Discharge plan -nitrofurantoin 100 mg b.i.d. for five days -dose follow-up with her PCP -needs referral to psychiatrist from her PCP for anxiety and panic attack control. Consults/Reason for consult N/A Operations or Procedures CHEST RADIOGRAPH Indication: cp Technique: Single frontal view of the chest was obtained COMPARISON: None FINDINGS: Lines and Tubes: None Lungs: Clear Pleura: No effusion. No pneumothorax. Cardiomediastinal contours: Unremarkable Bones: Unremarkable IMPRESSION: 1. No acute disease. Procedure: CT CHEST WITHOUT CONTRAST Reason for study/Clinical History: cp, abnormal cxr Comparison Study: None available at time of dictation. Exam Date: 10/14/2024 12:21 AM TECHNIQUE: Multidetector CT of the chest was performed from the lung apices to the upper abdomen without the use of intravenous contract. Axial, coronal and sagittal multiplanar reformats were performed. Radiation Dose Information: CT Dose: CTDI volume is 9.0 mGy. Dose-length product is 335 mGy*cm The dose indicators for CT are the volume Computed Tomography (CT) Dose Index (CTDIvol) and the Dose Length Product (DLP), and are measured in units of mGy and mGy-cm, respectively. These indicators are not patient dose, but values generated from the CT scanner acquisition factors. The report includes radiation exposure data for exposures received during this examination. FINDINGS: Lower neck: Normal thyroid. Lungs: Bibasilar atelectasis/scarring. No focal consolidation, pleural effusion or pneumothorax. Heart/Vascular Structures: Normal heart size. No pericardial effusion. Lymph Nodes: No adenopathy Pleura: No pleural effusion or significant pneumothorax. Musculoskeletal: No acute osseous abnormality. Soft tissues: Normal. Upper abdomen: Limited portions of the upper abdomen are unremarkable. IMPRESSION: 1. No acute intrathoracic abnormality. CLINICAL HISTORY: ams TECHNIQUE: Helical imaging carried out from skull base to vertex without intravenous contrast. This exam was performed according to our departmental dose optimization program. Up-to-date CT equipment and radiation dose reduction techniques are utilized as appropriate. CTDIVol: 57.57 mGy DLP: 1134 mGy-cm WID: COMPARISON: CT CHEST WITHOUT CONTRAST on DOS: 10/14/24 FINDINGS: The ventricles and subarachnoid spaces are normal in size and configuration. There is no midline shift or mass effect. The quiros white matter interfaces are maintained. The basal cisterns are patent. There is no evidence of acute intracranial hemorrhage or extra-axial fluid collection. The mastoid air cells and visualized paranasal sinuses are well-aerated. Dystrophic calcification anterior to the bilateral maxilla. IMPRESSION: No acute intracranial abnormality. Condition at Discharge: Good Final Diagnosis/Problems List Acute chest pain, Ruled out ACS Chest pain, Possible panic attack/Anxiety related? Acute toxic encephalopathy likely due to alcohol intoxication History of coronary artery disease, status post CABG on April 2023 Current smoker Hypokalemia, resolved Normocytic normochromic anemia Discharge Disposition: Home Discharge Instruct/Medications Diet: Cardiac 2g Na,low cholest Activity: No Restrictions, As Tolerated Follow Up/Referral: F/U with her PCP in 1 week Needs referral to [facility] by her PCP Medications: Nitrofurantoin 100 mg b.i.d. for five days. Discharge Statement: "Patient was advised to return to the ER or call 911 if any headaches, dizziness, shortness of breath, chest pain, abdominal pain, bleeding, fevers, or worsening of medical condition. Patient was counseled about treatment plan, medications, possible side effects, patientverbalized understanding. All questions were answered to the best of my ability. This discharge took greater then 30 minutes in planning, reviewing documentation, counseling the patient, and discussing with other team members." ASSESSMENT ASSESSMENT Assessment Acute chest pain, Ruled out ACS Chest pain, Possible panic attack/Anxiety related? Acute toxic encephalopathy likely due to alcohol intoxication History of coronary artery disease, status post CABG on April 2023 Current smoker Hypokalemia, resolved Normocytic normochromic anemia NE H[place] RESIDENT Oct 15, 2024 13:02
--- NOTE | 2024-10-17 09:24 | ECG ---
[facility] Test Date: 2024-10-13 Test Time: 22:40:15 Pat Name: PIPER ARCHER Department: ed Room: 0240T B Gender: F Dip Dyer: jose : 1970 Requested By: STUART LABOY Order Number: [id number] Reading MD: Phil No Measurements Intervals [place] Rate: 87 P: 56 UT: 136 QRS: 61 QRSD: 103 T: 63 QT: 408 QTc: 491 Interpretive Statements Sinus rhythm Borderline prolonged QT interval Electronically Signed On 10-20-2024 9:50:03 PST by Phil No Please click the below link to view image of tracing.
== END 2024-10-15 14:22 | disposition home or self-care (01) | DRG 917 ==
LOC: EDBD 21:27 → ER 21:27 → TELE 10-14 03:50 → TELE-EAST 10-14 22:45
PROVIDERS: ADMIT Student in an Organized Health Care Education/Training Program; ATTEND Emergency Medicine
DX: T51.0X1A Toxic effect of ethanol, accidental (unintentional), initial encounter (principal); G92.8 Other toxic encephalopathy; G31.2 Degeneration of nervous system due to alcohol; F10.129 Alcohol abuse with intoxication, unspecified; E87.6 Hypokalemia; I25.10 Atherosclerotic heart disease of native coronary artery without angina pectoris; E87.8 Other disorders of electrolyte and fluid balance, not elsewhere classified; Y90.1 Blood alcohol level of 20-39 mg/100 ml; Z20.822 Contact with and (suspected) exposure to COVID-19; D64.9 Anemia, unspecified; E78.5 Hyperlipidemia, unspecified; F17.200 Nicotine dependence, unspecified, uncomplicated; Z95.1 Presence of aortocoronary bypass graft; Z79.02 Long term (current) use of antithrombotics/antiplatelets; Z71.6 Tobacco abuse counseling
CPT/HCPCS: 36415; 70450; 71045; 71250; 80048; 80053; 80061; 80307; 80320; 81001; 81025; 82140; 82306; 82607; 82746; 83735; 83880; 84439; 84443; 84484; 85025; 87081; 87426; 87804; 93005; 93306; G0378; J2003; J2470